=== PATIENT | female | born 1995 | race Hispanic/Latino ===

== ENCOUNTER 2024-01-20 08:58 | Emergency (ER) | payer BC ==
[~2024-01-20] VITALS: Ht 162.6 cm; Wt 104.3 kg
[~2024-01-20 08:58] MED LIST: CEPH500B PO; NAPR-1506 PO; ONDA-243 PO
[2024-01-20 09:24] LABS: APPEARANCE,URINE CLEAR (CLEAR); BILIRUBIN,URINE NEGATIVE (NEGATIVE); COLOR,URINE YELLOW (YELLOW); GLUCOSE, URINE (UA) NEGATIVE (NEGATIVE); KETONES,URINE NEGATIVE (NEGATIVE); LEUKOCYTE ESTERASE ,URINE 75 Leu/uL (NEGATIVE); NITRATE,URINE NEGATIVE (NEGATIVE); OCCULT BLOOD,URINE NEGATIVE (NEGATIVE); PROTEIN,URINE 20 mg/dL (NEGATIVE); UROBILINOGEN,URINE 0.2 mg/dL (0.2-1.0)
[2024-01-20 09:28] LABS: ADD UA MICROSCOPIC YES
[2024-01-20 09:30] LABS: BACTERIA,URINE RARE /HPF (None Seen); HCG,QUALITATIVE URINE NEGATIVE (NEGATIVE); MUCUS,URINE RARE LPF (None Seen); SQUAMOUS EPITHELIAL CELL,UR FEW /HPF (0-2)
[2024-01-20] MEDS: MAG/ALUM/SIMETH 30 ML UDCUP PO ONE (09:32)
[2024-01-20] MEDS: PANTOPrazole 40 MG/VIAL IVP ONE (09:33)
[2024-01-20] MEDS: ondanSETRON 4MG INJ IVP ONE (09:33)
[2024-01-20] MEDS: LIDOCAINE HCL 2% VISCOUS 15 ML UDCUP PO ONE (09:33)
[2024-01-20 09:34] LABS: BASOPHILS # (AUTO) 0.02 K/uL (0.00-0.20); BASOPHILS % (AUTO) 0.2 % (0.0-5.0); EOSINOPHILS # (AUTO) 0.07 K/uL (0.00-0.70); EOSINOPHILS % (AUTO) 0.8 % (0.0-8.0); HEMATOCRIT 47.1 % (36-48); IMMATURE GRANULOCYTE ABSOLUTE 0.04 K/uL (0-1); MEAN CORPUSCULAR HEMOGLOBIN 28.4 pg (27.0-33.0); MEAN CORPUSCULAR HGB CONC 33.1 g/dL (32.0-36.0); MEAN CORPUSCULAR VOLUME 85.8 fL (79-99); MONOCYTES # (AUTO) 0.6 K/uL (0.1-1.0); MONOCYTES % (AUTO) 6.8 % (3.0-13.0); NEUTROPHILS # (AUTO) 7.4 K/uL (1.8-7.7); NEUTROPHILS % (AUTO) 80.8 % (40.0-77.0); PLATELET COUNT (AUTO) 367 K/uL (130-400); RED BLOOD CELL COUNT(AUTO) 5.49 MIL/uL (4.00-5.50); RED CELL DISTRIBUTION WIDTH 13.3 % (11.0-15.5); WHITE BLOOD COUNT (AUTO) 9.2 K/uL (4.8-10.8)
[2024-01-20] MEDS: LACTATED RINGERS 1000ML 1,000 ML IV ONE (09:34)
[2024-01-20 09:52] LABS: CREATININE 0.9 mg/dL (0.5-1.0); POTASSIUM 3.8 mmol/L (3.5-5.1)
[2024-01-20 09:57] LABS: ALBUMIN 3.8 g/dL (3.5-5.0); BILIRUBIN,TOTAL 0.3 mg/dL (0.2-1.0); TOTAL PROTEIN, SERUM 8.7 g/dL (6.0-8.3)
[2024-01-20] MEDS ORDERED: CEPH500B PO (10:21)
[2024-01-20] MEDS ORDERED: LINA145C PO (10:21)
[2024-01-20] MEDS ORDERED: DICL20GE TP (10:21)
[2024-01-20] MEDS: LACTULOSE 20 GM/30 ML UDCUP PO ONE (10:27)
[2024-01-20 11:00] VITALS: BP 127/67; PULSE 88; RESP 16; O2SAT 97
== END 2024-01-20 11:01 | disposition home or self-care (01) ==
LOC: EDH 08:58
DX: N39.0 Urinary tract infection, site not specified (principal); K59.00 Constipation, unspecified; G44.209 Tension-type headache, unspecified, not intractable; Z79.899 Other long term (current) drug therapy; Z90.49 Acquired absence of other specified parts of digestive tract
CPT/HCPCS: 99284; 96374; 96361; 96375; 82550; 84484; 80053; 83690; 85025; 87086; 81001; 81025; 36415; 93005; J7120; J2405; J2470